=== PATIENT | female | born 2000 | race Caucasian/White ===

== ENCOUNTER 2022-01-03 12:20 | Outpatient (REF) | payer BC, SELFPAY ==
--- NOTE | ~2022-01-03 | XR_ITS ---
EXAMINATION: XR HAND, LEFT CLINICAL INFORMATION: Contusion left thumb COMPARISON: None TECHNIQUE: PA, lateral, and oblique views of the left hand. FINDINGS: The bones and soft tissues are normal. No fracture. Alignment is anatomic. Joint spaces are maintained. No erosions or soft tissue calcifications. XR/XR hand LT min 3V IMPRESSION: Normal left hand.
== END 2022-01-03 12:21 | disposition home or self-care (01) ==
LOC: HO.HMGCX 12:20
PROVIDERS: Visit Provider Internal Medicine
DX: S60.012A Contusion of left thumb without damage to nail, initial encounter (principal)
CPT/HCPCS: 73130